=== PATIENT | male | born 1975 | race Caucasian/White ===

== ENCOUNTER 2018-10-24 09:51 | Inpatient (IN) | payer MEDICAID, SELFPAY ==
[~2018-10-24] VITALS: Ht 167.6 cm; Wt 90.0 kg
[2018-10-24 10:29] LABS: ANION GAP 26 mmol/L (8-16); CALCIUM, TOTAL 10.8 mg/dL (8.8-10.5); CARBON DIOXIDE 16 mmol/L (22-29); CHLORIDE 98 mmol/L (98-107); CREATININE 2.31 mg/dL (0.60-1.30); GLOMERULAR FILTR. RATE CALC 31 mL/min (>60); INR 0.9 (0.9-1.1); PROTHROMBIN TIME 9.6 SEC (9.4-11.6); SODIUM SERUM 140 mmol/L (136-145); UREA NITROGEN, BLOOD 28 mg/dL (7-18)
[2018-10-24 10:32] LABS: ALANINE AMINOTRANSFERASE 134 U/L (12-78); ALBUMIN 3.9 g/dL (3.4-5.0); ALKALINE PHOSPHATASE 328 U/L (46-116); ASPARTATE AMINOTRANSFERASE 48 U/L (15-37); BILIRUBIN,TOTAL 0.4 mg/dL (0.1-1.0); CREATINE KINASE, TOTAL ONLY 70 U/L (39-308); TOTAL PROTEIN, SERUM 9.2 g/dL (6.4-8.2)
[2018-10-24 10:35] LABS: BASOPHILS % (AUTO) 0.6 % (0.0-2.0); EOSINOPHILS % (AUTO) 0.1 % (1.0-6.0); HEMOGLOBIN 17.3 g/dL (13.5-17.5); LYMPHOCYTES # (AUTO) 1.5 K/uL (1.0-4.8); LYMPHOCYTES % (AUTO) 9.8 % (22.0-44.0); MEAN CORPUSCULAR HEMOGLOBIN 27.4 pg (26.0-34.0); MEAN CORPUSCULAR HGB CONC 31.5 G/dL (31.0-37.0); MEAN CORPUSCULAR VOLUME 87 fL (80-100); MONOCYTES # (AUTO) 0.7 K/uL (0.1-1.0); MONOCYTES % (AUTO) 4.7 % (2.0-9.0); NEUTROPHILS # (AUTO) 12.8 K/uL (1.8-7.7); NEUTROPHILS % (AUTO) 84.8 % (40.0-70.0); PLATELET COUNT (AUTO) 361 K/uL (150-450); RED BLOOD CELL COUNT(AUTO) 6.32 MIL/uL (4.50-5.90); RED CELL DISTRIBUTION WIDTH 14.2 % (11.5-14.5); SALICYLATE 2.9 mg/dL (2.8-20.0)
[2018-10-24 10:36] LABS: AMMONIA 55 umol/L (11-32)
[2018-10-24 10:37] LABS: TROPONIN I < 0.02 ng/mL (0.00-0.05)
[2018-10-24 10:38] LABS: ACETAMINOPHEN < 2 mcg/mL (10-30)
[2018-10-24 10:50] LABS: GLUCOSE,RANDOM 1161 mg/dL (70-110)
[2018-10-24] MEDS ORDERED: SODIUM CHLORIDE 0.9% 1,000 ML IV ONE ×2 (11:00→12:00)
[2018-10-24 11:04] LABS: LACTIC ACID 5.6 mmol/L (0.4-2.0)
[2018-10-24 11:05] LABS: B-TYPE NATRIURETIC PEPTIDE 74 pg/mL (0-100)
[2018-10-24 11:13] LABS: ABG A-A DIFF O2 14.4 mmHg (10-20.0); ABG BASE EXCESS -4.9 mmol/L (-2.0-3.0); ABG CARBOXYHEMOGLOBIN 0.3 % (0.0-1.5); ABG HCO3 20.7 mmol/L (22.0-26.0); ABG METHEMOGLOBIN 0.4 % (0.0-1.5); ABG OXYGEN CONTENT 26.1 mL/dL (15.0-23.0); ABG OXYGEN SATURATION 95.7 % (95.0-98.0); ABG PCO2 42 mmHg (35-45); ABG PH 7.322 (7.35-7.450); ABG TOTAL HEMOGLOBIN 19.6 G/dL (12.0-18.0); PO2, ARTERIAL BG 85.2 mmHg (88.0-96.0); SOURCE, BLOOD GAS ARTERIAL; TEMPERATURE, FAHRENHEIT, BG 98.6 FAHREN (96.0-98.6)
[2018-10-24 11:14] LABS: O2 DEVICE,BLOOD GAS ROOM AIR (ROOM AIR); SITE, BLOOD GAS RT RADIAL
[2018-10-24] MEDS ORDERED: LORazepam 2 MG/ML VIAL IVP ONE ×2 (11:45→14:15)
[2018-10-24] MEDS ORDERED: DEXTROSE 50%-WATER 25 GM/50 ML SYRINGE IVP PRN ×2 (11:45→14:00)
[2018-10-24] MEDS ORDERED: INSULIN REGULAR, HUMAN 100 UNITS/ML IVP ONE (11:45)
[2018-10-24] MEDS ORDERED: ONDANSETRON HCL 4 MG/2 ML VIAL IVP PRN (12:00)
[2018-10-24] MEDS ORDERED: ALBUTEROL SULFATE 2.5 MG/0.5 ML NEB SOLUTION NEB PRN (12:00)
[2018-10-24 13:18] LABS: GLUCOSE,POINT OF CARE > 600 MG/DL (70-110)
[2018-10-24 13:29] LABS: GLUCOSE,POINT OF CARE > 600 MG/DL (70-110)
[2018-10-24 13:44] LABS: APPEARANCE,URINE CLEAR (CLEAR); BILIRUBIN,URINE NEGATIVE (NEGATIVE); GLUCOSE, URINE (UA) >=1000 mg/dL (NEGATIVE); KETONES,URINE 15 mg/dL (NEGATIVE); LEUKOCYTE ESTERASE ,URINE NEGATIVE (NEGATIVE); NITRATE,URINE NEGATIVE (NEGATIVE); OCCULT BLOOD,URINE TRACE (NEGATIVE); PROTEIN,URINE NEGATIVE (NEGATIVE); UROBILINOGEN,URINE 0.2 mg/dL (<=1.0)
[2018-10-24] MEDS ORDERED: POTASSIUM CHLORIDE 40 MEQ in SODIUM CHLORIDE 0.45% 1,000 ML IV PRN (13:53)
[2018-10-24] MEDS ORDERED: DEXTROSE 5%-0.45% SODIUM CHL 1,000 ML IV PRN (13:53)
[2018-10-24] MEDS ORDERED: POTASSIUM CHL 20 MEQ/0.45% NS 1,000 ML IV PRN (13:53)
[2018-10-24] MEDS ORDERED: SODIUM CHLORIDE 0.45% 1,000 ML IV PRN (13:53)
[2018-10-24 13:54] LABS: AMPHET/METH SCREEN,URINE POSITIVE (NEGATIVE); BARBITURATE SCREEN, URINE NEGATIVE (NEGATIVE); BENZODIAZEPINES SCREEN,URINE NEGATIVE (NEGATIVE); CANNABINOID SCREEN,URINE NEGATIVE (NEGATIVE); COCAINE SCREEN,URINE NEGATIVE (NEGATIVE); METHADONE SCREEN, URINE NEGATIVE (NEGATIVE); OPIATE SCREEN,URINE NEGATIVE (NEGATIVE); PHENCYCLIDINE SCREEN,URINE NEGATIVE (NEGATIVE)
[2018-10-24 13:55] LABS: BACTERIA,URINE None Seen /HPF (None Seen); RBC,URINE None Seen /HPF (0-2); SQUAMOUS EPITHELIAL CELL,UR Rare /LPF (None Seen); WBC,URINE None Seen /HPF (0-5)
[2018-10-24 14:37] LABS: OSMOLALITY 405 mOS/kg (270-310)
[2018-10-24 14:56] LABS: CALCIUM, TOTAL 9.8 mg/dL (8.8-10.5); CREATININE 1.63 mg/dL (0.60-1.30); MAGNESIUM 3.2 mg/dL (1.80-2.40); PHOSPHORUS 3.5 mg/dL (2.5-4.9); POTASSIUM 3.7 mmol/L (3.5-5.1)
[2018-10-24] MEDS: SODIUM CHLORIDE 0.45% 1,000 ML IV SCH ×2 (15:52→19:45)
[2018-10-24] MEDS: INSULIN REGULAR, HUMAN 100 UNITS in SODIUM CHLORIDE 0.9% 99 ML IV PRN ×2 (16:54)
[2018-10-24] MEDS: INSULIN REGULAR, HUMAN 100 UNITS/ML IVP PRN ×6 (17:25→22:12)
[2018-10-24] MEDS: LORazepam 2 MG/ML VIAL IVP PRN ×3 (17:25→23:35)
[2018-10-24 17:29] LABS: GLUCOSE,POINT OF CARE 545 MG/DL (70-110)
[2018-10-24 18:00] VITALS: BP 115/83
[2018-10-24] MEDS ORDERED: PNEUMOCOCCAL VACCINE POLYVALENT 0.5 ML VIAL [PPSV23] IM ONE (19:00)
[2018-10-24 19:53] LABS: GLUCOSE,POINT OF CARE 571 MG/DL (70-110)
[2018-10-24 19:53] LABS: GLUCOSE,POINT OF CARE 393 MG/DL (70-110)
[2018-10-24 19:53] LABS: GLUCOSE,POINT OF CARE 459 MG/DL (70-110)
[2018-10-24 20:00] VITALS: BP 114/63
[2018-10-24 20:30] VITALS: BP 125/75
[2018-10-24] MEDS: ACETAMINOPHEN 325 MG TABLET PO PRN (20:32)
[2018-10-24] MEDS: MORPHINE SULFATE 2 MG/ML SYRINGE IVP PRN ×2 (20:33→23:36)
[2018-10-24 20:45] VITALS: BP 128/78
[2018-10-24] MEDS: DOCUSATE SODIUM 100 MG CAPSULE PO SCH (21:00)
[2018-10-24 22:04] LABS: GLUCOSE,POINT OF CARE 364 MG/DL (70-110)
[2018-10-24 22:04] LABS: GLUCOSE,POINT OF CARE 319 MG/DL (70-110)
[2018-10-24 22:05] LABS: CALCIUM, TOTAL 10.1 mg/dL (8.8-10.5); CREATININE 1.57 mg/dL (0.60-1.30)
[2018-10-24 22:06] LABS: POTASSIUM 2.8 mmol/L (3.5-5.1)
[2018-10-24] MEDS ORDERED: SODIUM CHLORIDE 0.9% 250 ML IV ONE (22:35)
[2018-10-24] MEDS: POTASSIUM CHL 10 MEQ/WATER 50 ML IV SCH (22:37)
[2018-10-24 22:54] LABS: GLUCOSE,POINT OF CARE 273 MG/DL (70-110)
[2018-10-24 23:28] LABS: GLUCOSE,POINT OF CARE 201 MG/DL (70-110)
[2018-10-24 23:35] VITALS: BP 142/77
[2018-10-24 23:50] VITALS: BP 121/94
[2018-10-25] VITALS (12 sets, daily range): BP systolic 121–190; BP diastolic 68–110
[2018-10-25] MEDS: POTASSIUM CHL 10 MEQ/WATER 50 ML IV SCH ×3 (00:15→01:56)
[2018-10-25 00:19] LABS: GLUCOSE,POINT OF CARE 172 MG/DL (70-110)
[2018-10-25] MEDS: INSULIN REGULAR, HUMAN 100 UNITS in SODIUM CHLORIDE 0.9% 99 ML IV PRN ×2 (01:21)
[2018-10-25 02:01] LABS: CALCIUM, TOTAL 10.5 mg/dL (8.8-10.5); CREATININE 1.57 mg/dL (0.60-1.30); POTASSIUM 4.3 mmol/L (3.5-5.1)
[2018-10-25] MEDS ORDERED: DEXTROSE 5%-WATER 1,000 ML IV SCH (02:30)
[2018-10-25] MEDS: LORazepam 2 MG/ML VIAL IVP PRN ×8 (02:40→22:31)
[2018-10-25] MEDS: MORPHINE SULFATE 2 MG/ML SYRINGE IVP PRN ×4 (02:44→23:23)
[2018-10-25 02:58] LABS: GLUCOSE,POINT OF CARE 141 MG/DL (70-110)
[2018-10-25 02:58] LABS: GLUCOSE,POINT OF CARE 119 MG/DL (70-110)
[2018-10-25 05:18] LABS: BASOPHILS % (AUTO) 0.5 % (0.0-2.0); EOSINOPHILS % (AUTO) 0.3 % (1.0-6.0); HEMATOCRIT 54.4 % (41-53); LYMPHOCYTES # (AUTO) 2.2 K/uL (1.0-4.8); LYMPHOCYTES % (AUTO) 8.2 % (22.0-44.0); MEAN CORPUSCULAR HEMOGLOBIN 27.5 pg (26.0-34.0); MEAN CORPUSCULAR VOLUME 83 fL (80-100); MONOCYTES # (AUTO) 1.9 K/uL (0.1-1.0); MONOCYTES % (AUTO) 7.1 % (2.0-9.0); NEUTROPHILS # (AUTO) 22.3 K/uL (1.8-7.7); NEUTROPHILS % (AUTO) 83.9 % (40.0-70.0); PLATELET COUNT (AUTO) 344 K/uL (150-450); RED BLOOD CELL COUNT(AUTO) 6.53 MIL/uL (4.50-5.90); RED CELL DISTRIBUTION WIDTH 14.2 % (11.5-14.5)
[2018-10-25 05:33] LABS: ALBUMIN 3.6 g/dL (3.4-5.0); BILIRUBIN,TOTAL 0.5 mg/dL (0.1-1.0); CALCIUM, TOTAL 10.3 mg/dL (8.8-10.5); CREATININE 1.45 mg/dL (0.60-1.30); MAGNESIUM 3.2 mg/dL (1.80-2.40); PHOSPHORUS 2.2 mg/dL (2.5-4.9); POTASSIUM 3.4 mmol/L (3.5-5.1); TOTAL PROTEIN, SERUM 8.9 g/dL (6.4-8.2)
[2018-10-25 06:59] LABS: GLUCOSE,POINT OF CARE 84 MG/DL (70-110)
[2018-10-25 06:59] LABS: GLUCOSE,POINT OF CARE 103 MG/DL (70-110)
[2018-10-25 06:59] LABS: GLUCOSE,POINT OF CARE 91 MG/DL (70-110)
[2018-10-25 06:59] LABS: GLUCOSE,POINT OF CARE 91 MG/DL (70-110)
[2018-10-25] MEDS: POTASSIUM CHLORIDE 10 MEQ in DEXTROSE 5%-WATER 1,000 ML IV SCH ×2 (07:14→20:18)
[2018-10-25] MEDS: HALOPERIDOL LACTATE 5 MG/ML VIAL IVP PRN ×2 (08:50→18:15)
[2018-10-25] MEDS: DOCUSATE SODIUM 100 MG CAPSULE PO SCH ×2 (09:00→20:19)
[2018-10-25] MEDS: PANTOPRAZOLE SODIUM 40 MG/VIAL IVP SCH (09:00)
[2018-10-25 09:34] LABS: GLUCOSE,POINT OF CARE 82 MG/DL (70-110)
[2018-10-25 09:34] LABS: GLUCOSE,POINT OF CARE 111 MG/DL (70-110)
[2018-10-25 09:54] LABS: GLUCOSE,POINT OF CARE 173 MG/DL (70-110)
[2018-10-25] MEDS ORDERED: *CLINICAL-LEVOFLOXACIN IVPB DOSING CLINICAL ONE (10:00)
[2018-10-25 10:14] LABS: CALCIUM, TOTAL 9.6 mg/dL (8.8-10.5); CREATININE 1.54 mg/dL (0.60-1.30); POTASSIUM 3.5 mmol/L (3.5-5.1)
[2018-10-25 10:38] LABS: GLUCOSE,POINT OF CARE 187 MG/DL (70-110)
[2018-10-25] MEDS: LEVOFLOXACIN 750 MG/D5% WATER 150 ML IV SCH (11:00)
[2018-10-25] MEDS ORDERED: SODIUM CHLORIDE 0.9% 250 ML IV ONE (11:40)
[2018-10-25 12:03] LABS: OSMOLALITY,URINE 655 mOS/kg (50-1200)
[2018-10-25 12:12] LABS: SODIUM,URINE RANDOM 13 mmol/l (20-110)
[2018-10-25 12:34] LABS: GLUCOSE,POINT OF CARE 188 MG/DL (70-110)
[2018-10-25 12:34] LABS: GLUCOSE,POINT OF CARE 212 MG/DL (70-110)
[2018-10-25 13:38] LABS: GLUCOSE,POINT OF CARE 191 MG/DL (70-110)
[2018-10-25 13:53] LABS: POTASSIUM 3.4 mmol/L (3.5-5.1)
[2018-10-25 13:54] LABS: CALCIUM, TOTAL 9.4 mg/dL (8.8-10.5); CREATININE 1.56 mg/dL (0.60-1.30)
[2018-10-25 15:09] LABS: GLUCOSE,POINT OF CARE 169 MG/DL (70-110)
[2018-10-25 16:03] LABS: GLUCOSE,POINT OF CARE 138 MG/DL (70-110)
[2018-10-25] MEDS ORDERED: POTASSIUM CHLORIDE 10% 40 MEQ/30 ML LIQUID UDCUP NG ONE (16:30)
[2018-10-25 16:33] LABS: GLUCOSE,POINT OF CARE 165 MG/DL (70-110)
[2018-10-25] MEDS ORDERED: POTASSIUM CHLORIDE IV PRN (18:00)
[2018-10-25] MEDS ORDERED: SODIUM CHLORIDE IV PRN (18:00)
[2018-10-25] MEDS ORDERED: [UNRECOGNIZED DRUG - OTHER] IV PRN (18:00)
[2018-10-25 18:29] LABS: GLUCOSE,POINT OF CARE 171 MG/DL (70-110)
[2018-10-25 18:29] LABS: GLUCOSE,POINT OF CARE 184 MG/DL (70-110)
[2018-10-25 18:33] LABS: CALCIUM, TOTAL 9.6 mg/dL (8.8-10.5); CREATININE 1.57 mg/dL (0.60-1.30); MAGNESIUM 2.1 mg/dL (1.80-2.40); POTASSIUM 4.4 mmol/L (3.5-5.1)
[2018-10-25 19:39] LABS: GLUCOSE,POINT OF CARE 156 MG/DL (70-110)
[2018-10-25 22:13] LABS: CALCIUM, TOTAL 9.2 mg/dL (8.8-10.5); CREATININE 1.51 mg/dL (0.60-1.30); MAGNESIUM 1.9 mg/dL (1.80-2.40); POTASSIUM 3.6 mmol/L (3.5-5.1)
[2018-10-26] VITALS (8 sets, daily range): BP systolic 11–157; BP diastolic 65–108
[2018-10-26] MEDS: LORazepam 2 MG/ML VIAL IVP PRN ×10 (00:34→22:18)
[2018-10-26] MEDS: ACETAMINOPHEN 325 MG TABLET PO PRN (00:34)
[2018-10-26 01:46] LABS: CALCIUM, TOTAL 9.4 mg/dL (8.8-10.5); CREATININE 1.49 mg/dL (0.60-1.30); POTASSIUM 3.7 mmol/L (3.5-5.1)
[2018-10-26] MEDS: HALOPERIDOL LACTATE 5 MG/ML VIAL IVP PRN ×3 (02:18→17:17)
[2018-10-26 03:11] LABS: GLUCOSE,POINT OF CARE 167 MG/DL (70-110)
[2018-10-26 03:11] LABS: GLUCOSE,POINT OF CARE 150 MG/DL (70-110)
[2018-10-26 03:11] LABS: GLUCOSE,POINT OF CARE 155 MG/DL (70-110)
[2018-10-26 03:11] LABS: GLUCOSE,POINT OF CARE 73 MG/DL (70-110)
[2018-10-26 03:11] LABS: GLUCOSE,POINT OF CARE 108 MG/DL (70-110)
[2018-10-26 03:11] LABS: GLUCOSE,POINT OF CARE 99 MG/DL (70-110)
[2018-10-26 03:11] LABS: GLUCOSE,POINT OF CARE 153 MG/DL (70-110)
[2018-10-26 04:15] LABS: GLUCOSE,POINT OF CARE 145 MG/DL (70-110)
[2018-10-26 04:15] LABS: GLUCOSE,POINT OF CARE 164 MG/DL (70-110)
[2018-10-26 05:09] LABS: GLUCOSE,POINT OF CARE 129 MG/DL (70-110)
[2018-10-26 05:13] LABS: CALCIUM, TOTAL 9.3 mg/dL (8.8-10.5); CREATININE 1.57 mg/dL (0.60-1.30); POTASSIUM 3.7 mmol/L (3.5-5.1)
[2018-10-26] MEDS: MORPHINE SULFATE 2 MG/ML SYRINGE IVP PRN ×2 (06:02→19:37)
[2018-10-26 06:49] LABS: GLUCOSE,POINT OF CARE 126 MG/DL (70-110)
[2018-10-26 06:49] LABS: GLUCOSE,POINT OF CARE 140 MG/DL (70-110)
[2018-10-26] MEDS: PANTOPRAZOLE SODIUM 40 MG/VIAL IVP SCH (08:03)
[2018-10-26] MEDS: DOCUSATE SODIUM 100 MG CAPSULE PO SCH ×2 (08:14→19:51)
[2018-10-26 08:44] LABS: GLUCOSE,POINT OF CARE 110 MG/DL (70-110)
[2018-10-26] MEDS: POTASSIUM CHLORIDE 10 MEQ in DEXTROSE 5%-WATER 1,000 ML IV SCH ×2 (09:17→22:49)
[2018-10-26 09:29] LABS: GLUCOSE,POINT OF CARE 136 MG/DL (70-110)
[2018-10-26 09:33] LABS: ALANINE AMINOTRANSFERASE 78 U/L (12-78); ALBUMIN 2.7 g/dL (3.4-5.0); ALKALINE PHOSPHATASE 183 U/L (46-116); ANION GAP 11 mmol/L (8-16); ASPARTATE AMINOTRANSFERASE 91 U/L (15-37); BILIRUBIN,TOTAL 1.2 mg/dL (0.1-1.0); CARBON DIOXIDE 22 mmol/L (22-29); CHLORIDE 116 mmol/L (98-107); CREATININE 1.23 mg/dL (0.60-1.30); GLOMERULAR FILTR. RATE CALC > 60 mL/min (>60); GLUCOSE,RANDOM 144 mg/dL (70-110); PHOSPHORUS 3.6 mg/dL (2.5-4.9); POTASSIUM 3.5 mmol/L (3.5-5.1); SODIUM SERUM 149 mmol/L (136-145); TOTAL PROTEIN, SERUM 6.8 g/dL (6.4-8.2); UREA NITROGEN, BLOOD 39 mg/dL (7-18)
[2018-10-26] MEDS: LEVOFLOXACIN 750 MG/D5% WATER 150 ML IV SCH (11:07)
[2018-10-26] MEDS ORDERED: VANCOMYCIN HCL 1 GM/D5% WATER 200 ML IV ONE (11:15)
[2018-10-26] MEDS: INSULIN GLARGINE,HUM.REC.ANLOG 100 UNITS/ML SQ SCH ×2 (11:42→20:11)
[2018-10-26] MEDS: INSULIN LISPRO 100 UNITS/ML SQ PRN ×2 (11:43→18:44)
[2018-10-26] MEDS: MetroNIDAZOLE 500 MG/NACL 100 ML IV SCH ×2 (12:16→19:33)
[2018-10-26 12:34] LABS: GLUCOSE,POINT OF CARE 222 MG/DL (70-110)
[2018-10-26 13:42] LABS: ANION GAP 13 mmol/L (8-16); CALCIUM, TOTAL 9.1 mg/dL (8.8-10.5); CARBON DIOXIDE 22 mmol/L (22-29); CHLORIDE 110 mmol/L (98-107); CREATININE 1.24 mg/dL (0.60-1.30); GLOMERULAR FILTR. RATE CALC > 60 mL/min (>60); GLUCOSE,RANDOM 284 mg/dL (70-110); SODIUM SERUM 145 mmol/L (136-145); UREA NITROGEN, BLOOD 37 mg/dL (7-18)
[2018-10-26 17:47] LABS: ANION GAP 11 mmol/L (8-16); CALCIUM, TOTAL 8.7 mg/dL (8.8-10.5); CARBON DIOXIDE 23 mmol/L (22-29); CHLORIDE 109 mmol/L (98-107); CREATININE 1.17 mg/dL (0.60-1.30); GLOMERULAR FILTR. RATE CALC > 60 mL/min (>60); GLUCOSE,RANDOM 285 mg/dL (70-110); SODIUM SERUM 143 mmol/L (136-145); UREA NITROGEN, BLOOD 33 mg/dL (7-18)
[2018-10-26 18:55] LABS: GLUCOSE,POINT OF CARE 239 MG/DL (70-110)
[2018-10-26] MEDS: VANCOMYCIN HCL 1 GM/D5% WATER 200 ML IV SCH (20:11)
[2018-10-26] MEDS ORDERED: DEXTROSE 50%-WATER 25 GM/50 ML SYRINGE IVP PRN (23:15)
[2018-10-27] VITALS (7 sets, daily range): BP systolic 117–149; BP diastolic 67–98
[2018-10-27] MEDS: MORPHINE SULFATE 2 MG/ML SYRINGE IVP PRN (00:18)
[2018-10-27] MEDS: INSULIN REGULAR, HUMAN 100 UNITS/ML SQ PRN ×4 (00:30→19:16)
[2018-10-27 00:34] LABS: GLUCOSE,POINT OF CARE 226 MG/DL (70-110)
[2018-10-27] MEDS: LORazepam 2 MG/ML VIAL IVP PRN ×4 (00:54→13:39)
[2018-10-27] MEDS: MetroNIDAZOLE 500 MG/NACL 100 ML IV SCH ×3 (02:19→18:50)
[2018-10-27] MEDS: HALOPERIDOL LACTATE 5 MG/ML VIAL IVP PRN (02:20)
[2018-10-27 05:11] LABS: ANION GAP 11 mmol/L (8-16); CARBON DIOXIDE 22 mmol/L (22-29); CHLORIDE 107 mmol/L (98-107); CREATININE 0.89 mg/dL (0.60-1.30); GLOMERULAR FILTR. RATE CALC > 60 mL/min (>60); GLUCOSE,RANDOM 264 mg/dL (70-110); POTASSIUM 4.1 mmol/L (3.5-5.1); SODIUM SERUM 140 mmol/L (136-145); UREA NITROGEN, BLOOD 22 mg/dL (7-18)
[2018-10-27 05:26] LABS: BASOPHILS % (AUTO) 0.7 % (0.0-2.0); EOSINOPHILS % (AUTO) 3.4 % (1.0-6.0); HEMATOCRIT 40.4 % (41-53); LYMPHOCYTES # (AUTO) 2.1 K/uL (1.0-4.8); LYMPHOCYTES % (AUTO) 18.9 % (22.0-44.0); MEAN CORPUSCULAR HEMOGLOBIN 27.6 pg (26.0-34.0); MEAN CORPUSCULAR HGB CONC 33.5 G/dL (31.0-37.0); MEAN CORPUSCULAR VOLUME 82 fL (80-100); NEUTROPHILS # (AUTO) 7.6 K/uL (1.8-7.7); PLATELET COUNT (AUTO) 181 K/uL (150-450); RED BLOOD CELL COUNT(AUTO) 4.92 MIL/uL (4.50-5.90)
[2018-10-27 05:28] LABS: HEMOGLOBIN 13.6 g/dL (13.5-17.5)
[2018-10-27] MEDS: VANCOMYCIN HCL 1 GM/D5% WATER 200 ML IV SCH ×2 (08:24→21:08)
[2018-10-27] MEDS: PANTOPRAZOLE SODIUM 40 MG/VIAL IVP SCH (08:24)
[2018-10-27] MEDS: DOCUSATE SODIUM 100 MG CAPSULE PO SCH ×2 (09:00→21:00)
[2018-10-27] MEDS: QUEtiapine FUMARATE 25 MG TABLET PO SCH ×2 (10:22→21:08)
[2018-10-27] MEDS: INSULIN GLARGINE,HUM.REC.ANLOG 100 UNITS/ML SQ SCH ×2 (10:32→21:21)
[2018-10-27 10:47] LABS: ALANINE AMINOTRANSFERASE 78 U/L (12-78); ALBUMIN 2.6 g/dL (3.4-5.0); ALKALINE PHOSPHATASE 175 U/L (46-116); ASPARTATE AMINOTRANSFERASE 70 U/L (15-37); BILIRUBIN,TOTAL 1.1 mg/dL (0.1-1.0); PHOSPHORUS 3.1 mg/dL (2.5-4.9); TOTAL PROTEIN, SERUM 6.7 g/dL (6.4-8.2)
[2018-10-27] MEDS: LEVOFLOXACIN 750 MG/D5% WATER 150 ML IV SCH (11:02)
[2018-10-27] MEDS: POTASSIUM CHLORIDE 10 MEQ in DEXTROSE 5%-WATER 1,000 ML IV SCH (13:39)
[2018-10-27 17:48] LABS: GLUCOSE,POINT OF CARE 227 MG/DL (70-110)
[2018-10-27 17:48] LABS: GLUCOSE,POINT OF CARE 243 MG/DL (70-110)
[2018-10-27] MEDS: ACETAMINOPHEN 325 MG TABLET PO PRN (18:47)
[2018-10-27] MEDS ORDERED: SODIUM CHLORIDE 0.9% 250 ML IV ONE (18:48)
[2018-10-27 23:44] LABS: GLUCOMETER DEV NAME(LOC) 5N.2; GLUCOSE,POINT OF CARE 220 MG/DL (70-110)
[2018-10-28] VITALS (7 sets, daily range): BP systolic 107–145; BP diastolic 63–83
[2018-10-28] MEDS: INSULIN REGULAR, HUMAN 100 UNITS/ML SQ PRN ×4 (00:21→18:33)
[2018-10-28] MEDS: LORazepam 2 MG/ML VIAL IVP PRN ×5 (00:35→21:49)
[2018-10-28] MEDS: MetroNIDAZOLE 500 MG/NACL 100 ML IV SCH ×3 (03:27→17:27)
[2018-10-28] MEDS: HALOPERIDOL LACTATE 5 MG/ML VIAL IVP PRN ×2 (04:37→17:24)
[2018-10-28 06:40] LABS: ANION GAP 10 mmol/L (8-16); CALCIUM, TOTAL 8.8 mg/dL (8.8-10.5); CARBON DIOXIDE 23 mmol/L (22-29); CHLORIDE 109 mmol/L (98-107); CREATININE 0.99 mg/dL (0.60-1.30); GLOMERULAR FILTR. RATE CALC > 60 mL/min (>60); GLUCOSE,RANDOM 223 mg/dL (70-110); POTASSIUM 3.6 mmol/L (3.5-5.1); SODIUM SERUM 142 mmol/L (136-145); UREA NITROGEN, BLOOD 19 mg/dL (7-18); VANCOMYCIN,RANDOM 10.7 mcg/mL (25.0-50.0)
[2018-10-28] MEDS: VANCOMYCIN HCL 1 GM/D5% WATER 200 ML IV SCH ×2 (09:13→15:24)
[2018-10-28] MEDS: DOCUSATE SODIUM 100 MG CAPSULE PO SCH ×2 (09:14→21:46)
[2018-10-28] MEDS: QUEtiapine FUMARATE 25 MG TABLET PO SCH ×2 (09:14→21:46)
[2018-10-28] MEDS: PANTOPRAZOLE SODIUM 40 MG/VIAL IVP SCH (09:14)
[2018-10-28] MEDS: INSULIN GLARGINE,HUM.REC.ANLOG 100 UNITS/ML SQ SCH ×2 (09:17→22:01)
[2018-10-28] MEDS: LEVOFLOXACIN 750 MG/D5% WATER 150 ML IV SCH (13:35)
[2018-10-28 14:04] LABS: GLUCOMETER DEV NAME(LOC) 5S.2; GLUCOSE,POINT OF CARE 204 MG/DL (70-110)
[2018-10-28 14:04] LABS: GLUCOMETER DEV NAME(LOC) 5S.2; GLUCOSE,POINT OF CARE 262 MG/DL (70-110)
[2018-10-28 14:04] LABS: GLUCOMETER DEV NAME(LOC) 5S.2; GLUCOSE,POINT OF CARE 194 MG/DL (70-110)
[2018-10-28 14:04] LABS: GLUCOMETER DEV NAME(LOC) 5N.2; GLUCOSE,POINT OF CARE 252 MG/DL (70-110)
[2018-10-28] MEDS ORDERED: SODIUM CHLORIDE 0.9% 250 ML IV ONE (15:21)
[2018-10-28 18:44] LABS: GLUCOMETER DEV NAME(LOC) 5S.2; GLUCOSE,POINT OF CARE 240 MG/DL (70-110)
[2018-10-29] MEDS: VANCOMYCIN HCL 1 GM/D5% WATER 200 ML IV SCH ×3 (00:12→16:13)
[2018-10-29] MEDS: INSULIN REGULAR, HUMAN 100 UNITS/ML SQ PRN ×5 (00:41→21:19)
[2018-10-29] MEDS: HALOPERIDOL LACTATE 5 MG/ML VIAL IVP PRN (02:33)
[2018-10-29] MEDS: LORazepam 2 MG/ML VIAL IVP PRN (02:33)
[2018-10-29 02:34] LABS: GLUCOMETER DEV NAME(LOC) 5S.2; GLUCOSE,POINT OF CARE 242 MG/DL (70-110)
[2018-10-29] MEDS: MetroNIDAZOLE 500 MG/NACL 100 ML IV SCH ×3 (03:05→18:37)
[2018-10-29 03:19] VITALS: BP 135/67
[2018-10-29 05:44] LABS: GLUCOMETER DEV NAME(LOC) 5N.2; GLUCOSE,POINT OF CARE 260 MG/DL (70-110)
[2018-10-29 06:08] LABS: BASOPHILS % (AUTO) 0.5 % (0.0-2.0); EOSINOPHILS % (AUTO) 2.9 % (1.0-6.0); HEMATOCRIT 35.7 % (41-53); HEMOGLOBIN 12.1 g/dL (13.5-17.5); LYMPHOCYTES # (AUTO) 1.4 K/uL (1.0-4.8); LYMPHOCYTES % (AUTO) 16.9 % (22.0-44.0); MEAN CORPUSCULAR HEMOGLOBIN 28.1 pg (26.0-34.0); MEAN CORPUSCULAR HGB CONC 33.8 G/dL (31.0-37.0); MEAN CORPUSCULAR VOLUME 83 fL (80-100); MONOCYTES # (AUTO) 0.7 K/uL (0.1-1.0); MONOCYTES % (AUTO) 8.7 % (2.0-9.0); PLATELET COUNT (AUTO) 167 K/uL (150-450); RED BLOOD CELL COUNT(AUTO) 4.29 MIL/uL (4.50-5.90); RED CELL DISTRIBUTION WIDTH 13.5 % (11.5-14.5)
[2018-10-29 06:41] LABS: ALANINE AMINOTRANSFERASE 47 U/L (12-78); ALBUMIN 2.1 g/dL (3.4-5.0); ALKALINE PHOSPHATASE 153 U/L (46-116); ANION GAP 11 mmol/L (8-16); ASPARTATE AMINOTRANSFERASE 41 U/L (15-37); BILIRUBIN,TOTAL 0.4 mg/dL (0.1-1.0); CARBON DIOXIDE 23 mmol/L (22-29); CHLORIDE 108 mmol/L (98-107); CREATININE 0.88 mg/dL (0.60-1.30); GLOMERULAR FILTR. RATE CALC > 60 mL/min (>60); GLUCOSE,RANDOM 259 mg/dL (70-110); POTASSIUM 3.7 mmol/L (3.5-5.1); SODIUM SERUM 142 mmol/L (136-145); TOTAL PROTEIN, SERUM 6.1 g/dL (6.4-8.2); UREA NITROGEN, BLOOD 18 mg/dL (7-18)
[2018-10-29 06:53] VITALS: BP 121/58
[2018-10-29 07:37] VITALS: BP 119/64
[2018-10-29] MEDS: DOCUSATE SODIUM 100 MG CAPSULE PO SCH ×2 (09:16→21:14)
[2018-10-29] MEDS: PANTOPRAZOLE SODIUM 40 MG/VIAL IVP SCH (09:17)
[2018-10-29] MEDS: QUEtiapine FUMARATE 25 MG TABLET PO SCH ×2 (09:17→21:14)
[2018-10-29] MEDS: INSULIN GLARGINE,HUM.REC.ANLOG 100 UNITS/ML SQ SCH ×2 (09:28→21:19)
[2018-10-29 11:59] VITALS: BP 109/77
[2018-10-29] MEDS: LEVOFLOXACIN 750 MG/D5% WATER 150 ML IV SCH (12:21)
[2018-10-29 15:30] VITALS: BP 114/79
[2018-10-29 17:59] LABS: GLUCOMETER DEV NAME(LOC) 5S.2; GLUCOSE,POINT OF CARE 216 MG/DL (70-110)
[2018-10-29 19:31] VITALS: BP 96/64
[2018-10-29 21:19] LABS: GLUCOMETER DEV NAME(LOC) 5S.2; GLUCOSE,POINT OF CARE 233 MG/DL (70-110)
[2018-10-30 00:10] VITALS: BP 102/52
[2018-10-30 00:24] LABS: GLUCOMETER DEV NAME(LOC) 5N.2; GLUCOSE,POINT OF CARE 233 MG/DL (70-110)
[2018-10-30 00:24] LABS: GLUCOMETER DEV NAME(LOC) 5N.2; GLUCOSE,POINT OF CARE 259 MG/DL (70-110)
[2018-10-30] MEDS: VANCOMYCIN HCL 1 GM/D5% WATER 200 ML IV SCH (00:31)
[2018-10-30] MEDS: MetroNIDAZOLE 500 MG/NACL 100 ML IV SCH ×2 (03:09→11:09)
[2018-10-30] MEDS: LORazepam 2 MG/ML VIAL IVP PRN (03:09)
[2018-10-30] MEDS: HALOPERIDOL LACTATE 5 MG/ML VIAL IVP PRN (03:09)
[2018-10-30 05:36] VITALS: BP 91/59
[2018-10-30] MEDS: INSULIN REGULAR, HUMAN 100 UNITS/ML SQ PRN ×3 (06:31→17:47)
[2018-10-30 06:38] LABS: BASOPHILS % (AUTO) 0.8 % (0.0-2.0); EOSINOPHILS % (AUTO) 3.3 % (1.0-6.0); HEMATOCRIT 34.6 % (41-53); HEMOGLOBIN 12.1 g/dL (13.5-17.5); LYMPHOCYTES # (AUTO) 1.7 K/uL (1.0-4.8); LYMPHOCYTES % (AUTO) 19.3 % (22.0-44.0); MEAN CORPUSCULAR HEMOGLOBIN 28.5 pg (26.0-34.0); MEAN CORPUSCULAR HGB CONC 34.8 G/dL (31.0-37.0); MEAN CORPUSCULAR VOLUME 82 fL (80-100); MONOCYTES # (AUTO) 0.7 K/uL (0.1-1.0); MONOCYTES % (AUTO) 8.1 % (2.0-9.0); NEUTROPHILS # (AUTO) 6.2 K/uL (1.8-7.7); NEUTROPHILS % (AUTO) 68.5 % (40.0-70.0); PLATELET COUNT (AUTO) 207 K/uL (150-450); RED BLOOD CELL COUNT(AUTO) 4.23 MIL/uL (4.50-5.90); RED CELL DISTRIBUTION WIDTH 13.3 % (11.5-14.5)
[2018-10-30 07:07] LABS: ALANINE AMINOTRANSFERASE 45 U/L (12-78); ALKALINE PHOSPHATASE 148 U/L (46-116); ANION GAP 9 mmol/L (8-16); ASPARTATE AMINOTRANSFERASE 50 U/L (15-37); BILIRUBIN,TOTAL 0.5 mg/dL (0.1-1.0); CALCIUM, TOTAL 8.8 mg/dL (8.8-10.5); CARBON DIOXIDE 25 mmol/L (22-29); CHLORIDE 107 mmol/L (98-107); CREATININE 0.87 mg/dL (0.60-1.30); GLOMERULAR FILTR. RATE CALC > 60 mL/min (>60); GLUCOSE,RANDOM 175 mg/dL (70-110); POTASSIUM 3.6 mmol/L (3.5-5.1); SODIUM SERUM 141 mmol/L (136-145); TOTAL PROTEIN, SERUM 5.9 g/dL (6.4-8.2); UREA NITROGEN, BLOOD 12 mg/dL (7-18); VANCOMYCIN,RANDOM 16.9 mcg/mL (25.0-50.0)
[2018-10-30 07:37] VITALS: BP 92/54
[2018-10-30 08:14] LABS: GLUCOMETER DEV NAME(LOC) 5S.1; GLUCOSE,POINT OF CARE 172 MG/DL (70-110)
[2018-10-30] MEDS: PANTOPRAZOLE SODIUM 40 MG/VIAL IVP SCH (08:43)
[2018-10-30] MEDS: VANCOMYCIN HCL 1.5 GM in DEXTROSE 5%-WATER 250 ML IV SCH ×2 (08:43→15:29)
[2018-10-30] MEDS: INSULIN GLARGINE,HUM.REC.ANLOG 100 UNITS/ML SQ SCH (08:49)
[2018-10-30] MEDS: QUEtiapine FUMARATE 25 MG TABLET PO SCH (09:00)
[2018-10-30] MEDS: DOCUSATE SODIUM 100 MG CAPSULE PO SCH (09:00)
[2018-10-30 11:53] VITALS: BP 98/51
[2018-10-30] MEDS: LEVOFLOXACIN 750 MG/D5% WATER 150 ML IV SCH (12:34)
[2018-10-30 13:04] LABS: GLUCOMETER DEV NAME(LOC) 5S.1; GLUCOSE,POINT OF CARE 211 MG/DL (70-110)
[2018-10-30 13:04] LABS: GLUCOMETER DEV NAME(LOC) 5N.1; GLUCOSE,POINT OF CARE 215 MG/DL (70-110)
[2018-10-30] MEDS ORDERED: DSS100 PO (14:23)
[2018-10-30] MEDS ORDERED: LEVO500 PO (14:24)
[2018-10-30] MEDS ORDERED: INSLAN SQ (14:25)
[2018-10-30 15:57] VITALS: BP 104/53
[2018-10-30] MEDS ORDERED: QUEtiapine FUMARATE 25 MG TABLET PO SCH (21:00)
[2018-10-31 05:49] LABS: GLUCOMETER DEV NAME(LOC) 5S.1; GLUCOSE,POINT OF CARE 240 MG/DL (70-110)
== END 2018-10-30 18:25 | disposition home or self-care (01) | DRG 420 ==
LOC: EMS 09:52 → ICU 12:35 → ICUN 10-26 20:49 → 5N 10-27 17:40 → 5S 10-29 22:00
PROVIDERS: ADMIT Internal Medicine; ATTEND Internal Medicine
DX: E11.10 Type 2 diabetes mellitus with ketoacidosis without coma (principal); G93.40 Encephalopathy, unspecified; N17.9 Acute kidney failure, unspecified; E87.0 Hyperosmolality and hypernatremia; E87.6 Hypokalemia; R56.9 Unspecified convulsions; E11.22 Type 2 diabetes mellitus with diabetic chronic kidney disease; F10.239 Alcohol dependence with withdrawal, unspecified; F15.10 Other stimulant abuse, uncomplicated; F19.10 Other psychoactive substance abuse, uncomplicated; N18.9 Chronic kidney disease, unspecified; F17.210 Nicotine dependence, cigarettes, uncomplicated; R65.10 Systemic inflammatory response syndrome (SIRS) of non-infectious origin without acute organ dysfunction; Z79.899 Other long term (current) drug therapy
CPT/HCPCS: 36600; 70450; 76770; 82805; 83036; 83605; 83735; 83930; 83935; 84100; 84300; 87081; 92610; 93005; 97162; 99291; C9113; G0378; G0480; G0481; J1630; J1815; J1956; J2060; J2270; J3370; J3480; J3490; J7030; J7050; J7060; J7131